=== PATIENT | male | born 1995 | race Caucasian/White ===

== ENCOUNTER 2017-02-24 17:38 | Emergency (ER) | payer OTHER ==
[~2017-02-24] VITALS: Ht 172.7 cm; Wt 107.6 kg
[2017-02-24 17:59] VITALS: Ht 172.7 cm; Wt 107.6 kg
[2017-02-24] MEDS ORDERED: IBUPROFEN 600 MG TAB PO ONE (18:30)
--- NOTE | 2017-02-24 20:04 | ERD ---
ER Documentation Chief Complaint Chief Complaint Complains of feeling weak since about noon today HPI 21-year-old male presents to the ER complaining of generalized weakness starting this afternoon associated with a fever and sore throat. The patient describes painful swallowing but no difficulty handling his secretions, and denies any history of voice changes or drooling. He feels generalized weakness , denies any headaches, vomiting, abdominal pain, chest pain shortness of breath. ROS All systems reviewed and are negative except as per history of present illness. Medications Home Meds Active Scripts Penicillin V Potassium* (Penicillin V K*) 500 Mg Tab, 500 MG PO TID for 10 Days , TAB Prov:ABIGAIL MANCILLA PA-C 02/24/17 Ibuprofen* (Motrin*) 600 Mg Tab, 600 MG PO Q6, #30 TAB Prov:ABIGAIL MANCILLA PA-C 02/24/17 Allergies Allergies: Coded Allergies: No Known Allergy (Unverified , 02/24/17) PMhx/Soc Medical and Surgical Hx: pt denies Medical Hx, pt denies Surgical Hx Hx Alcohol Use: No Hx Substance Use: No Hx Tobacco Use: No Smoking Status: Never smoker Physical Exam Vitals Vital Signs Date Time Temp Pulse Resp B/P Pulse Ox O2 Delivery O2 Flow Rate FiO2 02/24/17 17:59 99.9 96 20 129/85 99 Physical Exam General: Well-developed, well-nourished. The patient appears in no acute distress. HEENT: Head is normocephalic, atraumatic. No scleral icterus. TMs normal, oral pharyngeal exudate, uvula midline. Neck: Supple. Nontender. No lymphadenopathy. Lungs: Clear to auscultation. Normal air movement. Heart: Regular rate and rhythm. S1 and S2 are normal. No murmurs, gallops, or rubs. Abdomen: Nondistended. Extremities: No clubbing or cyanosis. Moving extremities x 4. No weakness. Neurologic: Alert and oriented 3. No focal deficits. Normal speech and gait. Skin: Normal turgor. No rash or lesions. Results 24 hrs Current Medications Medications (Trade) Dose Ordered Sig/Akshat Route PRN Reason Start Time Stop Time Status Last Admin Dose Admin Ibuprofen (Motrin) 600 mg ONCE ONCE PO 02/24/17 18:30 02/24/17 18:31 DC 02/24/17 18:48 Rapid Strep: NEG Procedures/MDM 21-year-old male presents with a history of fever, generalized weakness redness. Advised to take ibuprofen for pain, and he will be given a prescription for Pen-Vee K to fill if no symptomatic improvement in 2 days. No evidence of an abscess, rectal tracheitis Departure Diagnosis: Primary Impression: Pharyngitis Condition: ABIGAIL Jo PA-C Feb 24, 2017 20:04
[2017-02-24] MEDS ORDERED: PENI500T PO (20:20)
[2017-02-24] MEDS ORDERED: IBUP-1542 PO (20:20)
== END 2017-02-24 21:10 | disposition home or self-care (01) ==
LOC: FTE 17:38
DX: J02.9 Acute pharyngitis, unspecified (principal)
CPT/HCPCS: 87880; Z7502; Z7610; 99283

== ENCOUNTER 2018-12-15 07:17 | Emergency (ER) | payer OTHER ==
[~2018-12-15] VITALS: Ht 170.2 cm; Wt 90.0 kg
[~2018-12-15 07:17] MED LIST: AMOX1TAB10 PO; IBUP-1542 PO; PENI500T PO
[2018-12-15 07:24] VITALS: BP 127/62; PULSE 72; RESP 18; Ht 170.2 cm; Wt 90.0 kg
[2018-12-15] MEDS ORDERED: DIPHTH/TET/ACEL PERTUSS (ADULT) 0.5 ML VIAL IM* ONE (08:00)
== END 2018-12-15 10:23 | disposition home or self-care (01) ==
LOC: FTE 07:17
DX: S01.511A Laceration without foreign body of lip, initial encounter (principal); W54.0XXA Bitten by dog, initial encounter; Y92.89 Other specified places as the place of occurrence of the external cause; Z23 Encounter for immunization
CPT/HCPCS: 40650; 90471; 90715; Z7502

== ENCOUNTER 2018-12-17 08:41 | Emergency (ER) | payer OTHER ==
[~2018-12-17] VITALS: Ht 175.3 cm; Wt 102.3 kg
[2018-12-17 08:49] VITALS: BP 119/60; PULSE 73; RESP 18; Ht 175.3 cm; Wt 102.3 kg
== END 2018-12-17 09:39 | disposition home or self-care (01) ==
LOC: FTE 08:41
DX: Z48.01 Encounter for change or removal of surgical wound dressing (principal)
CPT/HCPCS: 99281

== ENCOUNTER 2018-12-23 10:19 | Emergency (ER) | payer OTHER ==
[~2018-12-23] VITALS: Ht 175.3 cm; Wt 110.6 kg
[2018-12-23 10:27] VITALS: BP 122/59; PULSE 75; RESP 18; Ht 175.3 cm; Wt 110.6 kg
== END 2018-12-23 12:42 | disposition home or self-care (01) ==
LOC: FTE 10:19
DX: Z48.02 Encounter for removal of sutures (principal)
CPT/HCPCS: 99281